=== PATIENT | male | born 1935 | race Caucasian/White ===

== ENCOUNTER → 2018-07-05 | Outpatient (CLI) | payer MEDICARE, OTHER ==
[~2018-07-05] MED LIST: CILO100T17 PO; LEVO125T5 PO; LOVA40TA2 PO; TRAZ150T62 PO; WARF6TAB47 PO
== END | disposition home or self-care (01) ==
LOC: CFH 09:00
PROVIDERS: ATTEND Internal Medicine Cardiovascular Disease
DX: I08.3 Combined rheumatic disorders of mitral, aortic and tricuspid valves (principal); I25.10 Atherosclerotic heart disease of native coronary artery without angina pectoris; I48.91 Unspecified atrial fibrillation; Z95.1 Presence of aortocoronary bypass graft; Z95.0 Presence of cardiac pacemaker; Z87.891 Personal history of nicotine dependence
CPT/HCPCS: 93306